=== PATIENT | female | born 1935 | race Two or more races ===

== ENCOUNTER 2019-12-17 08:07 | Day surgery (SDC) | payer MEDICARE, BC ==
--- NOTE | 2019-12-16 21:25 | Pre-Procedure Note/Attestation ---
Pre-Procedure Note/Attestation Complete Prior to Procedure Planned Procedure: left - Removal of cataract and placement of intraocular lens , left eye Procedure Narrative: Removal of cataract and placement of intraocular lens, left eye Indications for Procedure Pre-Operative Diagnosis: Cataract, combined, left eye Attestation I attest that I discussed the nature of the procedure; its benefits; risks and complications; and alternatives (and the risks and benefits of such alternatives ), prior to the procedure, with the patient (or the patient's legal member services representative). I attest that, if there was a reasonable possibility of needing a blood transfusion, the patient (or the patient's legal member services representative) was given the [place] Department of Health Services standardized written summary, pursuant to the [place] Blood Safety Act ([place] Health and Safety Code # 1645, as amended). I attest that I re-evaluated the patient just prior to the surgery and that there has been no change in the patient's H&P, except as documented below: Kirt Grimaldo MD Dec 16, 2019 21:25
[~2019-12-17] VITALS: Ht 170.2 cm; Wt 70.3 kg
[2019-12-17] VITALS (8 sets, daily range): BP systolic 121–164; BP diastolic 46–81
[~2019-12-17 08:07] MED LIST: ASPIRIN325 MG ORAL; METOPROLOL SUCC25 MG ORAL; OMEPRAZOLE40 M1 ORAL; SYNTHROID25 MCG ORAL; Vit B12 PO
[2019-12-17] MEDS: Cyclopentolate 1% Opth Sol 2ml LEFT EYE SCH ×3 (09:31→09:47)
[2019-12-17] MEDS: Phenylephrine 10% Opth Soln 5ml LEFT EYE SCH ×3 (09:31→09:47)
[2019-12-17] MEDS: Tobradex Opth Susp 2.5ml LEFT EYE SCH ×3 (09:31→09:46)
[2019-12-17] MEDS: Diclofenac Sod 0.1% Op Soln LEFT EYE SCH ×3 (09:31→09:46)
[2019-12-17] MEDS: Vigamox Opth Soln 3ml LEFT EYE SCH ×3 (09:31→09:47)
[2019-12-17] MEDS: Akten 3.5% 1ml Btl LEFT EYE SCH ×3 (09:32→09:47)
[2019-12-17] MEDS: Tropicamide 1% Opth 15ml Soln LEFT EYE SCH ×3 (09:32→09:46)
[2019-12-17] MEDS ORDERED: LR 1000ml 1,000 ML IVLG SCH (09:37)
--- NOTE | 2019-12-17 09:39 | Anethesia Preoperative Eval ---
Anesthesia Pre-op PMH/ROS General Date of Evaluation: Dec 17, 2019 Time of Evaluation: 09:57 Anesthesiologist: Nara ASA Score: ASA 3 Mallampati Score Class I : Soft palate, uvula, fauces, pillars visible Class II: Soft palate, uvula, fauces visible Class III: Soft palate, base of uvula visible Class IV: Only hard plate visible Mallampati Classification: Class III Surgeon: Dillan Diagnosis: Cataract OS Surgical Procedure: Cat Ext IOL OS Anesthesia History: none Family History: no anesthesia problems Allergies: Coded Allergies: PENICILLINS (Verified Allergy, Intermediate, rash, 12/16/19) MEPERIDINE (Verified Adverse Reaction, Intermediate, hallucination, ) Medications: see eMAR Patient NPO?: Yes Past Medical History Cardiovascular: Reports: HTN, CAD Endocrine: Reports: hypothyroidism HEENT: Reports: cataract (L), cataract (R) Hematology/Immune: Reports: anemia, other - Breast CA PSxH Narrative: CABG, Breast Sx, Appendectomy, Bunionectomy Anesthesia Pre-op Phys. Exam Physician Exam Vital Signs Date Time Temp Pulse Resp B/P (MAP) Pulse Ox O2 Delivery O2 Flow Rate FiO2 12/17/19 09:36 98.0 67 18 164/81 98 Room Air Constitutional: NAD Neurologic: CN 2-12 intact Cardiovascular: RRR Respiratory: CTA Gastrointestinal: S/NT/ND Airway Exam Mallampati Score: Class III MO: full ROM: limited Teeth: missing, intact Anesthesia Pre-op A/P Risk Assessment & Plan Assessment: ASA 3 Plan: TIVA Status Change Before Surgery: No Neil Bains MD Dec 17, 2019 09:39
[2019-12-17] MEDS ORDERED: EPINEPHrine 1mg/1ml Amp ONE (09:43)
[2019-12-17] MEDS ORDERED: Lidocaine 4% Amp 5ml ONE (09:43)
[2019-12-17] MEDS ORDERED: Lidocaine 1% MPF 10mg/ml 5ml ONE ×2 (09:43→10:18)
[2019-12-17] MEDS ORDERED: Povidone-Iodine 5% opth solution ONE (09:44)
[2019-12-17] MEDS ORDERED: Sodium Hyaluronate 10 mg/ml 0.85ml ONE (09:44)
[2019-12-17] MEDS ORDERED: Carbachol 0.01% Op Soln 1.5ml vial ONE (09:44)
[2019-12-17] MEDS ORDERED: Tetracaine 0.5% Opth 4ml Soln ONE (09:44)
[2019-12-17] MEDS ORDERED: BSS 15ml BTL ONE (09:44)
[2019-12-17] MEDS ORDERED: BSS 500ml btl ONE (09:44)
[2019-12-17] MEDS ORDERED: prednisoLONE acetate 1% Opth Susp 1ml ONE (09:44)
[2019-12-17] MEDS ORDERED: Maxitrol Opth Oint 3.5gm ONE (09:44)
[2019-12-17] MEDS ORDERED: Hydromorphone 0.5mg/0.5ml inj IVP PRN (09:45)
[2019-12-17] MEDS ORDERED: Metoclopramide 10mg/2ml Inj IVP PRN (09:45)
[2019-12-17] MEDS ORDERED: Ketorolac 30mg Inj IV PRN ×2 (09:45)
[2019-12-17] MEDS ORDERED: HYDROcodone/Acetamin 7.5/325 tab ORAL PRN (09:45)
[2019-12-17] MEDS ORDERED: DiphenhydrAMINE 50mg/ml Inj IVP PRN (09:45)
[2019-12-17] MEDS ORDERED: Atropine Sulfate 0.4mg/ml inj IVP PRN (09:45)
[2019-12-17] MEDS ORDERED: Midazolam 2mg/2ml Inj IVP PRN (09:45)
[2019-12-17] MEDS ORDERED: oxyCODONE HCL/Acetaminophen 5/325mg ORAL PRN (09:45)
[2019-12-17] MEDS ORDERED: Labetalol 5mg/ml 20ml vial IV PRN (09:45)
[2019-12-17] MEDS ORDERED: Meperidine 25mg/0.5ml Inj (FOR RIGORS ONLY) IV PRN (09:45)
[2019-12-17] MEDS ORDERED: LORazepam Inj 2mg/ml 1ml IV PRN (09:45)
[2019-12-17] MEDS ORDERED: HYDROcodone/Acetamin 5/325 tab ORAL PRN (09:45)
[2019-12-17] MEDS ORDERED: fentaNYL 100 mcg/2 mL IV PRN (09:45)
[2019-12-17] MEDS ORDERED: Sterile Water Irrig 1000ml IRRIG ONE (10:00)
[2019-12-17] MEDS ORDERED: LR 1000ml ONE (10:00)
[2019-12-17] MEDS ORDERED: NS Irrig 1000ml ONE (10:00)
--- NOTE | 2019-12-17 10:10 | Immediate Post-Op Evaluation ---
Immediate Post-Op Evalulation Immediate Post-Op Evalulation Procedure: Cat Ext IOL OS Date of Evaluation: Dec 17, 2019 Time of Evaluation: 11:23 IV Fluids: 200 LR Blood Products: 0 Estimated Blood Loss: 1 Urinary Output: 0 Blood Pressure Systolic: 152 Blood Pressure Diastolic: 51 Pulse Rate: 57 Respiratory Rate: 16 O2 Sat by Pulse Oximetry: 98 Temperature (Fahrenheit): 97.3 Pain Score (1-10): 1 Nausea: No Vomiting: No Complications 0 Patient Status: awake, reacts, patent, none Hydration Status: adequate Neil Bains MD Dec 17, 2019 10:09
--- NOTE | 2019-12-17 10:10 | 48 Hour Post Anesthesia Eval ---
Post Anesthesia Evaluation Procedure: Cat Ext IOL OS Date of Evaluation: Dec 17, 2019 Time of Evaluation: 13:43 Blood Pressure Systolic: 153 0: 56 Pulse Rate: 62 Respiratory Rate: 18 Temperature (Fahrenheit): 97.6 O2 Sat by Pulse Oximetry: 98 Airway: patent Nausea: No Vomiting: No Pain Intensity: 1 Hydration Status: adequate Cardiopulmonary Status: Stable Mental Status/LOC: patient returned to baseline Follow-up Care/Observations: 0 Post-Anesthesia Complications: 0 Follow-up care needed: ready to discharge Neil Bains MD Dec 17, 2019 10:10
[2019-12-17] MEDS ORDERED: Midazolam 2mg/2ml Inj ONE (10:18)
[2019-12-17] MEDS ORDERED: Dyna-Hex 2% Top Sol 2oz TOPIC ONE (10:23)
--- NOTE | 2019-12-17 11:10 | Discharge Instructions ---
Discharge Instructions Discharge Instructions Follow Up Orders Wear shield at all times except to place eye drops Continue preop eye drops Followup tomorrow Return to Work/School on: Dec 17, 2019 For Congestive Heart Failure Reminder Report to your physician any weight gain of 5 pounds or more in one week. Kirt Grimaldo MD Dec 17, 2019 11:09
--- NOTE | 2019-12-17 11:12 | Brief Operative Note ---
Immediate Post Operative Note Operative Note Pre-op Diagnosis: Cataract, combined, left eye Procedure: Phaco PC IOL OS Post-op Diagnosis: same as pre-op Surgeon: Rina Grimaldo MD MS Log Peeler: none Anesthesiologist: Dr Bains Anesthesia: local, MAC Specimen: none Complications: none Fluids: see chart Implant(s) used?: Yes - prabhakar ZCB00 24.5 Kirt Grimaldo MD Dec 17, 2019 11:11
--- NOTE | 2019-12-17 16:30 | Operative Note - Dictated ---
DATE OF OPERATION: 12/17/2019 SURGEON: Kirt Grimaldo MD. POOL HALL INSPECTOR SURGEON: None. ANESTHESIOLOGIST: Neil Bains MD. ANESTHESIA: Local/standby/monitored anesthesia care. PREOPERATIVE DIAGNOSIS: 1. Cataract, combined, left eye. 2. Status post radial keratotomy, left eye. PROCEDURE: 1. Phacoemulsification of cataract, left eye. 2. Placement of posterior chamber intraocular lens, left eye (model Aidan and Aidan ZCB00, power 24.5). SPECIMENS: None. COMPLICATIONS: None. INDICATIONS FOR SURGERY: The patient has had the painless progressive decrease in visual acuity in the left eye secondary to cataract. The patient understands the risks of surgery including infection, bleeding, need for further surgery, loss of vision, no improvement in vision, loss of the eye, loss of life, glaucoma, retinal detachment, opening up of radial keratotomy wounds, she understands these risks and elects to proceed with surgery. FINDINGS: The patient had a +3 to 4 nuclear sclerotic cataract and +2 cortical cataract. The radial keratotomy wound stayed intact during the entire procedure. OPERATIVE NOTE: After informed consent was obtained, the patient was brought into the operating room and placed in supine position. Cardiac and respiratory monitors were attached. A time-out was performed and all criteria were met and everyone in the room agreed. The left eye was then draped and prepped in sterile manner for ocular surgery. A lid speculum was placed in the eye. A 1% lidocaine preservative-free was injected at the approximate 3' o clock limbus. A 2.6 mm limbal incision was made, centered at approximately 3' o clock and dissected anteriorly. This limbal incision was made approximately 1 mm posterior to the limbus and went a little deeper than usual to avoid splitting of radial keratotomy wounds. Paracentesis was made at approximately 5:30 indicating radial keratotomy wounds. Shugarcaine was injected through the paracentesis site followed by Healon. The anterior chamber was then entered using a 2.6 mm keratome through the limbal incision. Note again the radial keratotomy wound stayed intact during the entire procedure. The anterior capsulorrhexis was then performed. Hydrodissection and hydrodelineation of the lens was then performed. The lens was then phacoemulsified using divide and conquer four-quadrant technique. Residual cortical material was then aspirated. Healon was injected into the anterior chamber and capsular bag. The lens was taken from its package, placed into the cartridge and the tip of the cartridge was placed through the limbal incision. The lens was injected into the capsular bag and centered nicely with a Sinskey hook. Healon was aspirated from the anterior chamber and capsular bag. The wounds were hydrated closed and one 10-0 nylon interrupted suture was placed through the limbal incision and the knot was rotated and buried. Care was taken during the entire procedure not to touch the endothelium. The wounds were checked and found to be watertight. The conjunctiva was closed with forceps cautery. The lid speculum and drapes were removed from the eye and drops of moxifloxacin, TobraDex, and Pred Forte were applied to the eye followed by Maxitrol ointment and shield. Prior to removing the lid speculum, intra-ocular lens was checked and the optic and both haptics were in the wound centered along the 3 o'clock and 6 o'clock meridian. Kirt Grimaldo M.D. DR: Bijan JOB#: [id number] CC:
== END 2019-12-17 12:30 | disposition home or self-care (01) ==
LOC: SUR 08:07
DX: H25.12 Age-related nuclear cataract, left eye (principal); H25.012 Cortical age-related cataract, left eye; Z88.0 Allergy status to penicillin; I11.9 Hypertensive heart disease without heart failure; I25.10 Atherosclerotic heart disease of native coronary artery without angina pectoris; E03.9 Hypothyroidism, unspecified; Z90.49 Acquired absence of other specified parts of digestive tract; Z95.1 Presence of aortocoronary bypass graft; Z85.3 Personal history of malignant neoplasm of breast
CPT/HCPCS: 66984; 94003; J0171; J1100; J2250; J2704; J7120; U0002; V2632; 94150

== ENCOUNTER 2020-01-14 10:46 | Day surgery (SDC) | payer MEDICARE, BC ==
--- NOTE | 2020-01-13 21:54 | Pre-Procedure Note/Attestation ---
Pre-Procedure Note/Attestation Complete Prior to Procedure Planned Procedure: right - Removal of cataract and placement of intraocular lens, right eye Procedure Narrative: Removal of cataract and placement of intraocular lens, right eye Indications for Procedure Pre-Operative Diagnosis: Cataract, combined, right eye Attestation I attest that I discussed the nature of the procedure; its benefits; risks and complications; and alternatives (and the risks and benefits of such alternatives ), prior to the procedure, with the patient (or the patient's legal agency sales representative). I attest that, if there was a reasonable possibility of needing a blood transfusion, the patient (or the patient's legal agency sales representative) was given the [place] Department of Health Services standardized written summary, pursuant to the [place] Blood Safety Act ([place] Health and Safety Code # 1645, as amended). I attest that I re-evaluated the patient just prior to the surgery and that there has been no change in the patient's H&P, except as documented below: Kirt Grimaldo MD Jan 13, 2020 21:54
[2020-01-14] VITALS (8 sets, daily range): BP systolic 120–176; BP diastolic 58–89
[~2020-01-14] VITALS: Ht 175.3 cm; Wt 70.3 kg
[2020-01-14] MEDS ORDERED: Phenylephrine 10% Opth Soln 5ml ONE (12:17)
[2020-01-14] MEDS ORDERED: Vigamox Opth Soln 3ml ONE (12:17)
[2020-01-14] MEDS ORDERED: Cyclopentolate 1% Opth Sol 2ml ONE (12:17)
[2020-01-14] MEDS ORDERED: Akten 3.5% 1ml Btl ONE (12:17)
[2020-01-14] MEDS ORDERED: Tropicamide 1% Opth 15ml Soln ONE (12:17)
[2020-01-14] MEDS ORDERED: prednisoLONE acetate 1% Opth Susp 1ml ONE ×2 (12:17→13:45)
[2020-01-14] MEDS: Phenylephrine 10% Opth Soln 5ml RIGHT EYE SCH ×3 (12:27→12:47)
[2020-01-14] MEDS: prednisoLONE acetate 1% Opth Susp 1ml RIGHT EYE SCH ×3 (12:27→12:47)
[2020-01-14] MEDS: Vigamox Opth Soln 3ml RIGHT EYE SCH ×3 (12:27→12:49)
[2020-01-14] MEDS: Cyclopentolate 1% Opth Sol 2ml RIGHT EYE SCH ×3 (12:29→12:47)
[2020-01-14] MEDS: Akten 3.5% 1ml Btl RIGHT EYE SCH ×3 (12:29→12:49)
[2020-01-14] MEDS: Tropicamide 1% Opth 15ml Soln RIGHT EYE SCH ×3 (12:29→12:47)
[2020-01-14] MEDS ORDERED: EPINEPHrine 1mg/1ml Amp ONE (13:44)
[2020-01-14] MEDS ORDERED: timoloL maleate 0.5% Op Soln 2.5ml ONE (13:45)
[2020-01-14] MEDS ORDERED: Maxitrol Opth Oint 3.5gm ONE (13:45)
[2020-01-14] MEDS ORDERED: Povidone-Iodine 5% opth solution ONE (13:45)
[2020-01-14] MEDS ORDERED: BSS 15ml BTL ONE (13:45)
[2020-01-14] MEDS ORDERED: Lidocaine 1% MPF 10mg/ml 5ml ONE (13:45)
[2020-01-14] MEDS ORDERED: BSS 500ml btl ONE (13:45)
[2020-01-14] MEDS ORDERED: Tetracaine 0.5% Opth 4ml Soln ONE (13:45)
[2020-01-14] MEDS ORDERED: Lidocaine 4% Amp 5ml ONE (13:45)
[2020-01-14] MEDS ORDERED: Sodium Hyaluronate 10 mg/ml 0.85ml ONE (13:46)
[2020-01-14] MEDS ORDERED: LR 1000ml ONE (14:00)
[2020-01-14] MEDS ORDERED: fentaNYL 100 mcg/2 mL IV ONE (14:00)
[2020-01-14] MEDS ORDERED: Sterile Water Irrig 1000ml IRRIG ONE (14:00)
[2020-01-14] MEDS ORDERED: NS Irrig 1000ml ONE (14:00)
[2020-01-14] MEDS ORDERED: Maxitrol Opth Susp 5ml ONE (14:14)
--- NOTE | 2020-01-14 14:20 | Anethesia Preoperative Eval ---
Anesthesia Pre-op PMH/ROS General Date of Evaluation: Jan 14, 2020 Time of Evaluation: 13:40 Anesthesiologist: Lucy ASA Score: ASA 3 Mallampati Score Class I : Soft palate, uvula, fauces, pillars visible Class II: Soft palate, uvula, fauces visible Class III: Soft palate, base of uvula visible Class IV: Only hard plate visible Mallampati Classification: Class II Surgeon: Dillan Diagnosis: R eye cataract Surgical Procedure: Cataract extraction Anesthesia History: none Allergies: Coded Allergies: PENICILLINS (Verified Allergy, Intermediate, rash, 01/14/20) MEPERIDINE (Verified Adverse Reaction, Intermediate, hallucination, 01/14/20) Medications: see eMAR Patient NPO?: Yes Past Medical History Cardiovascular: Reports: HTN, CAD - s/p CABG; Denies: [place], valve dz, arrhythmia, other Pulmonary: Denies: asthma, COPD, RICKY, other Gastrointestinal/Genitourinary: Reports: GERD; Denies: CRI, ESRD, other Neurologic/Psychiatric: Reports: depression/anxiety; Denies: dementia, CVA, TIA, other Endocrine: Reports: hypothyroidism; Denies: DM, steroids, other HEENT: Reports: cataract (L), cataract (R); Denies: glaucoma, [place] (L), [place] (R), other Hematology/Immune: Denies: anemia, DVT, bleeding disorder, other Musculoskeletal/Integumentary: Reports: OA; Denies: RA, DJD, DDD, edema, other PMH Narrative: as above PSxH Narrative: See H&P Anesthesia Pre-op Phys. Exam Physician Exam Last Vital Signs Date Time Temp Pulse Resp B/P (MAP) Pulse Ox O2 Delivery O2 Flow Rate FiO2 01/14/20 12:36 Room Air 01/14/20 12:34 97.5 64 18 148/58 97 Constitutional: NAD Neurologic: CN 2-12 intact Cardiovascular: RRR, no M/R/G Respiratory: CTA Gastrointestinal: S/NT/ND Airway Exam Mallampati Score: Class II MO: full Neck: stiff ROM: full Teeth: intact Dentures: no upper, no lower Anesthesia Pre-op A/P Labs see chart Studies Pre-op Studies: EKG - SR Risk Assessment & Plan Assessment: ASA 3 Plan: MAC Status Change Before Surgery: No Ryan Ayala MD Jan 14, 2020 14:20
[2020-01-14] MEDS ORDERED: fentaNYL 100 mcg/2 mL IV PRN (14:30)
--- NOTE | 2020-01-14 15:07 | Discharge Instructions ---
Discharge Instructions Discharge Instructions Follow Up Orders Wear eye shield at all times except to place eye drops Continue preoperative eye drops Followup tomorrow For Congestive Heart Failure Reminder Report to your physician any weight gain of 5 pounds or more in one week. Kirt Grimaldo MD Jan 14, 2020 15:07
--- NOTE | 2020-01-14 15:10 | Immediate Post-Op Evaluation ---
Immediate Post-Op Evalulation Immediate Post-Op Evalulation Procedure: R eye cataract extraction with IOL Date of Evaluation: Jan 14, 2020 Time of Evaluation: 15:10 IV Fluids: 200 Blood Products: none Estimated Blood Loss: none Urinary Output: none Blood Pressure Systolic: 146 Blood Pressure Diastolic: 75 Pulse Rate: 64 Respiratory Rate: 18 O2 Sat by Pulse Oximetry: 99 Temperature (Fahrenheit): 98.1 Pain Score (1-10): 1 Nausea: No Vomiting: No Complications NONE Patient Status: awake, patent, none Hydration Status: adequate Ryan Ayala MD Jan 14, 2020 15:10
--- NOTE | 2020-01-14 15:11 | Brief Operative Note ---
Immediate Post Operative Note Operative Note Pre-op Diagnosis: Cataract, combined, right eye Procedure: Phaco PC IOL OD Post-op Diagnosis: same as pre-op plus - S/P RADIAL KERATOTOMY WITH 16 CUTS Surgeon: Rina Grimaldo MD MS Dynamics Ax Developer: none Anesthesiologist: Dr Ayala Anesthesia: local, MAC Specimen: none Complications: none Fluids: see chart Estimated Blood Loss: minimal Implant(s) used?: Yes - PCB00 24.0 Kirt Grimaldo MD Jan 14, 2020 15:11
--- NOTE | 2020-01-14 18:29 | Operative Note - Dictated ---
DATE OF OPERATION: 01/14/2020 SURGEON: Kirt Grimaldo MD CLERK TO JUSTICE SURGEON: None. ANESTHESIOLOGIST: Ryan Ayala MD ANESTHESIA: Local/standby/monitored anesthesia care. PREOPERATIVE DIAGNOSES: 1. Cataract, combined, right eye. 2. Status post radial keratotomy with 16 incisions. POSTOPERATIVE DIAGNOSES: 1. Cataract, combined, right eye. 2. Status post radial keratotomy with 16 incisions. PROCEDURE: 1. Phacoemulsification of cataract, right eye. 2. Placement of posterior chamber intraocular lens, right eye (model [id number], power 24.0). SPECIMENS: None. COMPLICATIONS: None. INDICATIONS FOR SURGERY: The patient has had the painless progressive decrease in visual acuity in the right eye secondary to a cataract. The patient understands the risks of surgery including infection, bleeding, need for further surgery, loss of vision, no improvement in vision, loss of the eye, loss of life, glaucoma, retinal detachment, opening of radial keratotomy wounds, and understands these risks and elects to proceed with surgery. FINDINGS: The patient had 16-cut radial keratotomy wounds, all remained intact during the entire procedure. The patient had a +3 to 4 nuclear sclerotic cataract with +2 cortical cataract. OPERATIVE NOTE: After informed consent was obtained, the patient was brought into the operative room and placed in supine position. Cardiac and respiratory monitors were attached. A time-out was performed and all criteria were met and everyone in the room agreed. The right eye was then draped and prepped in a sterile manner for ocular surgery. A lid speculum was placed in the eye. I took at least 5 minutes' exam on which was the best area to approach the cataract because of the radial keratotomy wounds. The superior temporal area had the most distance between 2 radial keratotomy wounds and this was where I made the initial incision. A 1% lidocaine preservative-free was injected at approximately 10 o'clock. A conjunctival peritomy from approximately 9:30 to 11:30 was made and dissected posteriorly. Hemostasis was maintained with bipolar cautery. An incision was made approximately 1 mm posterior to the limbus and dissected anteriorly. A paracentesis was made at approximately 12 o'clock and in between the 2 radial keratotomy wounds. Shugarcaine was injected into the anterior chamber followed by Healon. The anterior chamber was then entered through the limbal wound between the 2 radial keratotomy incisions at approximately 10 o'clock. This was done going approximately 1 mm posterior to the limbus and going deep. An anterior capsulorrhexis was then performed. Hydrodissection and hydrodelineation of the lens was then performed. The lens was then phacoemulsified using a divide and conquer four-quadrant technique. Residual cortical material was then aspirated. The oil refinery process technician had attempted twice with one lens to insert it into the cartridge, but each time, the haptics unfolded and it was not able to be inserted. Another lens was obtained and again twice the oil refinery process technician attempted to fold the intraocular lens into the cartridge and the haptics opened, and it was not able to be used. A preloaded intraocular lens was then obtained and Healon was injected into the anterior chamber and capsular bag. The tip of the cartridge was then placed through the limbal wound and the lens was injected into the capsular bag and centered nicely with a Sinskey hook. Healon was then aspirated from the anterior chamber and capsular bag. One 10-0 nylon interrupted suture was then placed through the limbal incision and the knot was rotated and buried. The wounds were hydrodissected and closed also. Then the wounds were checked and found to be watertight. The lens was positioned into the 9 o'clock to 3 o'clock meridian and was centered nicely. The conjunctiva was then closed with forceps cautery. The lid speculum and drapes were removed from the eye and the lens was examined again and found to have both haptics and the optic in the capsular bag along the 9 o'clock to 3 o'clock meridian. The drapes were removed from the eye and drops of Timoptic, moxifloxacin, and Pred Forte were applied to the eye followed by Maxitrol ointment and a shield. The patient tolerated the procedure well and left the operating room awake, alert, and in stable condition. Kirt Grimaldo M.D. DR: Richard JOB#: [id number] CC:
[2020-01-15 08:01] VITALS: BP 148/76
--- NOTE | 2020-01-15 08:01 | 48 Hour Post Anesthesia Eval ---
Post Anesthesia Evaluation Procedure: R eye cataract extraction with IOL Date of Evaluation: Jan 14, 2020 Time of Evaluation: 15:50 Blood Pressure Systolic: 148 0: 76 Pulse Rate: 68 Respiratory Rate: 20 Temperature (Fahrenheit): 97.6 O2 Sat by Pulse Oximetry: 98 Airway: patent Nausea: No Vomiting: No Pain Intensity: 1 Hydration Status: adequate Cardiopulmonary Status: stable Mental Status/LOC: patient returned to baseline Follow-up Care/Observations: n/a Post-Anesthesia Complications: none Follow-up care needed: ready to discharge Ryan Ayala MD Jan 15, 2020 08:01
== END 2020-01-14 15:55 | disposition home or self-care (01) ==
LOC: SUR 10:46
DX: H25.11 Age-related nuclear cataract, right eye (principal); H25.011 Cortical age-related cataract, right eye
CPT/HCPCS: 66984; 93005; J0171; J2704; J3010; J7120; U0002